=== PATIENT | male | born 1970 | race African-American/Black ===

== ENCOUNTER 2022-07-25 13:52 | Outpatient (CLI) | payer BC | END 2022-07-25 13:53 | disposition home or self-care (01) | LOC: MRI 13:52 → BICMRI 13:53 | PROVIDERS: ATTEND Orthopaedic Surgery | DX: S83.242A Other tear of medial meniscus, current injury, left knee, initial encounter (principal); M25.462 Effusion, left knee | CPT/HCPCS: 70210 ==